=== PATIENT | female | born 1990 | race Caucasian/White ===

== ENCOUNTER 2023-07-12 11:02 | Emergency (ER) | payer OTHER, SELFPAY ==
--- NOTE | 2023-07-12 11:03 | ED.EAR ---
HPI - Ear Problem General Chief complaint: Ear Stated complaint: Both Ear Irritation Time Seen by Provider: 07/12/23 11:03 Source: patient Mode of arrival: ambulatory Limitations: no limitations History of Present Illness HPI Narrative: Patient is a 32-year-old female who presents with bilateral ear pain left worse than right for 1 week. Patient states pain worsened last night. Reports ears feels raw. Has been using warm compresses that not taken any medications. Denies any congestion, sore throat, fever, chills, sinus pressure, cough. MD Complaint: ear pain Related Data Home Medications Medication Instructions Recorded Confirmed levonorgestrel 21 mcg/24 hours (8 1 device intrauterine ONCE 07/12/23 07/12/23 yrs) 52 mg intrauterine device (Mirena) lisdexamfetamine 60 mg capsule mg 07/12/23 (Vyvanse) semaglutide 1 mg/dose (4 mg/3 mL) mg subcut 07/12/23 subcutaneous pen injector (Ozempic) Allergies Allergy/AdvReac Type Severity Reaction Status Date / Time Cephalosporins Allergy Mild RASH Verified 07/12/23 11:16 Review of Systems Review of Systems: All systems reviewed & are unremarkable except as noted in HPI and below Constitutional: Constitutional: Denies body ache(s), Denies chills, Denies fever(s), Denies headache(s) and Denies malaise Eyes: Eyes: Denies blurry vision, Denies eye discharge and Denies irritation ENT: Reports otalgia, Denies headache(s), Denies nasal congestion, Denies nasal discharge and Denies sore throat Cardiovascular: Cardiovascular: Denies chest pain, Denies edema, Denies palpitations and Denies dyspnea on exertion Respiratory: Respiratory: Denies cough and Denies dyspnea on exertion Gastrointestinal: Gastrointestinal: Denies abdominal pain, Denies diarrhea, Denies nausea and Denies vomiting Musculoskeletal: Musculoskeletal: Denies back pain, Denies arthralgias and Denies muscle weakness Integumentary/Breasts: Skin/Breast: Denies pruritus and Denies rash Neurologic: Denies headache(s) Psychiatric: Psychiatric: Reports no additional psychiatric complaints Endocrine: Endocrine: Denies palpitations PMFSH Comments At time of signature, agree with nursing past medical, surgical, social and family history. There is no relevant family history pertinent to the presenting complaint? Exam Const: General: cooperative, healthy appearing, no acute distress and well nourished Nutritional Appearance: well nourished Orientation/consciousness: patient oriented x3 Limitations: no limitations HENMT: Head: normal to inspection, normocephalic and atraumatic Ears: hearing grossly normal bilaterally, no periauricular adenopathy, Abnormal EAC present cerumen impaction on the right, erythema bilateral, edema on the left and EAC tenderness on the left and TM abnormal bulging on the left, erythematous on the left and obstructed by cerumen on the right Face/Nose/Sinus: Normal external nose present, Normal nares present, Normal nasal mucous membranes and turbinates present, No nasal discharge present, normal facial exam and sinuses nontender Face and sinus: normal facial exam and sinuses nontender Mouth: Yes Normal oral and palatal mucosa present, Yes lip normal, Yes tongue normal and Yes moist mucous membranes Throat: posterior oropharynx normal, tonsils normal and uvula midline Eyes: General: appearance normal, both eyes and all related structures Alignment and Position: alignment normal and position normal Eyelids: eyelids normal Pupils: Equal, round and reactive pupils present EOM: EOMs intact bilaterally Neck: Neck: normal visual inspection, full ROM, no lymphadenopathy and supple Chest: Chest palpation & inspection: normal inspection of the chest Resp: Effort & Inspection: normal respiratory effort and able to speak in complete sentences Auscultation: clear to auscultation bilaterally, no crackles, no rales, no rhonchi and no wheezes Cardio: Rate: regular rate Rhythm: regular rhyt
[2023-07-12 11:16] VITALS: BP 135/80; PULSE 81; RESP 16; TEMP 36.6; O2SAT 100
--- NOTE | 2023-07-12 11:18 | PC.NURSE ---
In triage Patient was asked their weight (part of vital sign protocol), patient stated she did not know. I kindly asked the patient to step on scale to get her weight and the patient stated that is not what I am here for my ear has nothing to do with my weight and refused to step on the scale. I informed patient we get weight and height for all patient's and this is typically used for when providers dose medication. Patient still refused. Provider informed.
== END 2023-07-12 11:32 | disposition home or self-care (01) ==
PROVIDERS: Emergency Provider Nurse Practitioner Family; PCP Family Medicine
DX: H60.92 Unspecified otitis externa, left ear (principal); H66.92 Otitis media, unspecified, left ear; H61.21 Impacted cerumen, right ear
CPT/HCPCS: 99213; G0463